=== PATIENT | male | born 1955 | race Caucasian/White ===

== ENCOUNTER 2020-02-20 08:40 | Emergency (ER) | payer OTHER ==
[~2020-02-20] VITALS: Ht 177.8 cm; Wt 93.1 kg
--- NOTE | 2020-02-20 10:07 | Diagnostic Imaging Report ---
HISTORY: Left index finger injury 2 days ago with limp distal phalanx. TECHNIQUE: Frontal view of the hand. Oblique and lateral views of the left index finger. COMPARISON: None. FINDINGS: No acute fracture or dislocation is seen in the left index finger. Alignment appears normal. Joint spaces are preserved. There are degenerative changes at the thumb MCP joint. Tiny hyperdensities in the anterior soft tissues of the left thumb may represent small foreign bodies. IMPRESSION: No acute osseous abnormality is seen in the left index finger. Dictated by: Dictated on workstation # [id number]
--- NOTE | 2020-02-20 10:45 | ED Upper Extremity ---
General Chief Complaint: Upper Extremity Stated Complaint: FINGER INJURY Nursing Triage Note: AMB TO ED REPORTS ON SAT WAS CLEANING OUT TRUCK AND JAMMED L INDEX FINGER FELT A POP AND TIP OF FINGER WENT LIMP. HAS PUT A SPLINT ON IT SINCE SAT . SPLINT IN PLACE. Nursing Sepsis Screen: No Definite Risk Source: patient Exam Limitations: no limitations History of Present Illness Date Seen by Provider: Feb 20, 2020 Time Seen by Provider: 10:42 Initial Comments Was working on his car yesterday, jammed his left index finger and felt a pop. He is unable to extend the left distal phalanx now. He is from [place]. Onset: just prior to arrival Severity: moderate Pain/Injury Location: left 2nd finger Method of Injury: direct blow Modifying Factors: Worse With Movement Allergies and Home Medications Patient Home Medication List Home Medication List Reviewed: Yes Review of Systems Constitutional: see HPI EENTM: see HPI Respiratory: no symptoms reported Cardiovascular: no symptoms reported Genitourinary: no symptoms reported Musculoskeletal: see HPI Skin: no symptoms reported Psychiatric/Neurological: No Symptoms Reported Past Cntkbbv-Lmcjgr-Pnrpao Hx Patient Social History Alcohol Use: Denies Use Recreational Drug Use: No Smoking Status: Never a Smoker Recent Foreign Travel: No Contact w/Someone Who Travel: No Recent Infectious Disease Expo: No Physical Exam Vital Signs Vital Signs - First Documented 02/20/20 08:58 Temp 37.2 Pulse 73 Resp 18 B/P (MAP) 131/92 (105) Pulse Ox 96 O2 Delivery Room Air Capillary Refill : Less Than 3 Seconds Height, Weight, BMI Height: '" Weight: lbs. oz. kg; 29.00 BMI Method: General Appearance: WD/WN, no apparent distress Respiratory: no respiratory distress, no accessory muscle use Shoulder: normal inspection, non-tender Elbow/Forearm: normal inspection, non-tender Wrist: Yes normal inspection, Yes non-tender Hand: normal inspection, Left, limited ROM (unable to do resisted extension of distal phalynx with bruising dorsally over the distal finger. Able to flex the finger though. ) Progress/Results/Core Measures Results/Orders Vital Signs/I&O 02/20/20 08:58 Temp 37.2 Pulse 73 Resp 18 B/P (MAP) 131/92 (105) Pulse Ox 96 O2 Delivery Room Air Blood Pressure Mean: 105 Departure Impression Primary Impression: Mallet deformity of left index finger Disposition: 01 HOME, SELF-CARE Condition: Stable Departure-Patient Inst. Decision time for Depature: 10:44 Patient Instructions: Common Finger Injuries (DC) Add. Discharge Instructions: 1. Keep the finger splinted for about 6 weeks. Follow-up with orthopedics when he returned home for further evaluation. Return to ER for any concerns. All discharge instructions reviewed with patient and/or family. Voiced understanding. AYUSH MENDENHALL ADMINISTRATIVE OFFICER Feb 20, 2020 10:45
[2020-02-20 10:52] VITALS: BP 131/92
== END 2020-02-20 10:51 | disposition home or self-care (01) ==
LOC: EDUNIT# 08:40 → ER 08:43
DX: M20.012 Mallet finger of left finger(s) (principal)
CPT/HCPCS: 73140

== ENCOUNTER 2020-08-25 09:00 | Emergency (ER) | payer OTHER ==
[~2020-08-25] VITALS: Ht 177 cm; Wt 95.2 kg
[2020-08-25] MEDS ORDERED: METO50TA7 (09:27)
[2020-08-25] MEDS ORDERED: OMEP40CA27 (09:27)
[2020-08-25] MEDS ORDERED: BUPR150T24 (09:27)
[2020-08-25] MEDS ORDERED: ATOR10TA66 (09:27)
[2020-08-25] MEDS ORDERED: NITROGLYCERIN 0.4 MG SL TABS BTL 25'S SL PRN (09:30)
[2020-08-25 09:39] LABS: BASOPHILS # (AUTO) 0.1 10^3/uL (0.0-0.1); BASOPHILS % (AUTO) 1 % (0-10); EOSINOPHILS # (AUTO) 0.1 10^3/uL (0.0-0.3); EOSINOPHILS % (AUTO) 2 % (0-10); HEMATOCRIT 41 % (40-54); HEMOGLOBIN 13.7 g/dL (13.3-17.7); LYMPHOCYTES # (AUTO) 2.1 10^3/uL (1.0-4.0); LYMPHOCYTES % (AUTO) 36 % (12-44); MEAN CORPUSCULAR HEMOGLOBIN 31 pg (25-34); MEAN CORPUSCULAR HGB CONC 33 g/dL (32-36); MEAN CORPUSCULAR VOLUME 92 fL (80-99); MEAN PLATELET VOLUME 9.5 fL (9.0-12.2); MONOCYTES % (AUTO) 17 % (0-12); NEUTROPHILS # (AUTO) 2.5 10^3/uL (1.8-7.8); NEUTROPHILS % (AUTO) 44 % (42-75); PLATELET COUNT 208 10^3/uL (130-400); WHITE BLOOD COUNT 5.7 10^3/uL (4.3-11.0)
[2020-08-25 09:43] LABS: PROTHROMBIN TIME PATIENT 13.7 SEC (12.2-14.7)
[2020-08-25 09:44] LABS: CHLORIDE 107 MMOL/L (98-107); POTASSIUM 4.4 MMOL/L (3.6-5.0); SODIUM 140 MMOL/L (135-145)
[2020-08-25 09:45] LABS: CALCIUM 8.7 MG/DL (8.5-10.1)
[2020-08-25 09:46] LABS: GLUCOSE 95 MG/DL (70-105)
[2020-08-25 09:47] LABS: TOTAL PROTEIN 7.1 GM/DL (6.4-8.2)
[2020-08-25 09:48] LABS: BILIRUBIN,TOTAL 0.5 MG/DL (0.1-1.0); CARBON DIOXIDE 23 MMOL/L (21-32)
[2020-08-25 09:50] LABS: ALKALINE PHOSPHATASE 98 U/L (40-136); CREATININE SERUM 0.87 MG/DL (0.60-1.30); GFR ESTIMATED > 60
[2020-08-25 09:51] LABS: BUN/CREATININE RATIO 14
[2020-08-25 09:53] LABS: ALANINE AMINOTRANSFERASE 23 U/L (0-55)
--- NOTE | 2020-08-25 10:05 | Diagnostic Imaging Report ---
INDICATION: Chest pain EXAMINATION: Chest from 08/25/2020 FINDINGS: Single view chest FINDINGS: The cardiomediastinal silhouette is unremarkable. The pulmonary vasculature is within normal limits. The lungs and pleural spaces are clear. IMPRESSION: No evidence of an acute cardiopulmonary process. Dictated by: Dictated on workstation # [id number]
--- NOTE | 2020-08-25 13:04 | ED Cardiac General ---
History of Present Illness General Chief Complaint: Chest Pain Stated Complaint: CHEST TIGHTNESS Nursing Triage Note: PT PRESENTS TO ED VIA POC FROM HOME WITH COMPLAINTS OF L SIDED CP AND TACHYCARDIA STARTING WHILE HE WAS DRIVING THIS AM AROUND 0830. Source: patient Exam Limitations: no limitations History of Present Illness Date Seen by Provider: Aug 25, 2020 Time Seen by Provider: 10:03 Initial Comments Here with report of left-sided chest tightness and palpitations that occurred acutely while driving this morning. He has had another episode of that previously last week and then a few years ago. He has followed with cardiology for that in [facility]. He has had work-up and found to have minimal mitral valve prolapse and he was started on metoprolol and atorvastatin. Has done very well without since. Noted a little chest discomfort today that he rated 3 out of 10. Does admit to drinking a small amount of coffee this morning and does not usually take any caffeine and. Overall better by time of my exam. Timing/Duration: 1/2 hour, gone now Severity: mild, moderate Location: central (Palpitations) Activities at Onset: other (Driving) Prior CP/Workup: echocardiography Modifying Factors: improves with rest NTG SL STORE PROTECTION SPECIALIST: No ASA po STORE PROTECTION SPECIALIST: Yes (162 MG STORE PROTECTION SPECIALIST) Associated Systoms: Chest Pain; No Diaphoresis, No Fever/Chills, No Headaches, No Nausea/Vomiting, No Shortness of Air, No Weakness Allergies and Home Medications Allergies Coded Allergies: Penicillins (Verified Allergy, Unknown, 08/25/20) codeine (Verified Allergy, Unknown, 08/25/20) Patient Home Medication List Home Medication List Reviewed: Yes Review of Systems Review of Systems Constitutional: see HPI; No chills, No fever EENTM: No Symptoms Reported Respiratory: No Symptoms Reported; Denies Cough, Denies Shortness of Air Cardiovascular: See HPI; Denies Lightheadedness; Palpitations Gastrointestinal: Denies Abdominal Pain, Denies Nausea Genitourinary: No Symptoms Reported Musculoskeletal: no symptoms reported Skin: no symptoms reported Psychiatric/Neurological: No Symptoms Reported All Other Systems Reviewed Negative Unless Noted: Yes Past Limpbks-Erxjfi-Tezfkb Hx Past Med/Social Hx: Reviewed Nursing Past Med/Soc Hx Patient Social History Alcohol Use: Occasionally Uses Smoking Status: Never a Smoker Recent Infectious Disease Expo: No Recent Hopitalizations: No Past Medical History Surgeries: Yes (WIPPLE PROCEDURE, ) Gallbladder Respiratory: No Cardiac: Yes Angina, Hypertension Neurological: No Genitourinary: No Gastrointestinal: Yes Gastroesophageal Reflux Musculoskeletal: No Endocrine: No Cancer: Yes (CARCCENOID-PANCREATIC) What Type of Treatment Did You: Surgical Intervention Psychosocial: Yes Depression Integumentary: No Family Medical History Reviewed Nursing Family Hx No Pertinent Family Hx Physical Exam Vital Signs Vital Signs - First Documented 08/25/20 09:07 Temp 36.6 Pulse 72 Resp 18 B/P (MAP) 156/87 (110) Pulse Ox 97 O2 Delivery Room Air Capillary Refill : Less Than 3 Seconds Height, Weight, BMI Height: '" Weight: lbs. oz. kg; 30.00 BMI Method: General Appearance: No Apparent Distress, WD/WN HEENT: PERRL/EOMI, Pharynx Normal Neck: Non Tender, Supple Respiratory: Lungs Clear, Normal Breath Sounds Cardiovascular: Regular Rate, Rhythm, No Murmur Gastrointestinal: Non Tender, Soft Extremity: Normal Range of Motion, Non Tender Neurologic/Psychiatric: Alert, Oriented x3 Skin: Normal Color, Warm/Dry Progress/Results/Core Measures Results/Orders Lab Results Laboratory Tests Test 08/25/20 09:14 08/25/20 11:30 08/25/20 12:49 Range/Units White Blood Count 5.7 4.3-11.0 10^3/uL Red Blood Count 4.48 4.30-5.52 10^6/uL Hemoglobin 13.7 13.3-17.7 g/dL Hematocrit 41 40-54 % Mean Corpuscular Volume 92 80-99 fL Mean Corpuscular Hemoglobin 31 25-34 pg Mean Corpuscular Hemoglobin Concent 33 32-36 g/dL Red Cell Distribution Width 13.0 10.0-14.5 % Platelet Count 208 130-400 10^3/uL Mean Platelet Volume 9.5 9.0-12.2 fL Immature Granulocyte % (Auto) 0 % Neutrophils (%) (Auto) 44 42-75 % Lymphocytes (%) (Auto) 36 12-44 % Monocytes (%) (Auto) 17 H 0-12 % Eosinophils (%) (Auto) 2 0-10 % Basophils (%) (Auto) 1 0-10 % Neutrophils # (Auto) 2.5 1.8-7.8 10^3/uL Lymphocytes # (Auto) 2.1 1.0-4.0 10^3/uL Monocytes # (Auto) 1.0 0.0-1.0 10^3/uL Eosinophils # (Auto) 0.1 0.0-0.3 10^3/uL Basophils # (Auto) 0.1 0.0-0.1 10^3/uL Immature Granulocyte # (Auto) 0.0 0.0-0.1 10^3/uL Prothrombin Time 13.7 12.2-14.7 SEC INR Comment 1.0 0.8-1.4 Activated Partial Thromboplast Time 32 24-35 SEC D-Dimer 0.32 0.00-0.49 UG/ML Sodium Level 140 135-145 MMOL/L Potassium Level 4.4 3.6-5.0 MMOL/L Chloride Level 107 98-107 MMOL/L Carbon Dioxide Level 23 21-32 MMOL/L Anion Gap 10 5-14 MMOL/L Blood Urea Nitrogen 12 7-18 MG/DL Creatinine 0.87 0.60-1.30 MG/DL Estimat Glomerular Filtration Rate > 60 BUN/Creatinine Ratio 14 Glucose Level 95 70-105 MG/DL Calcium Level 8.7 8.5-10.1 MG/DL Corrected Calcium 8.7 8.5-10.1 MG/DL Magnesium Level 2.0 1.6-2.4 MG/DL Total Bilirubin 0.5 0.1-1.0 MG/DL Aspartate Amino Transf (AST/SGOT) 20 5-34 U/L Alanine Aminotransferase (ALT/SGPT) 23 0-55 U/L Alkaline Phosphatase 98 40-136 U/L Myoglobin 41.6 10.0-92.0 NG/ML Troponin I < 0.028 < 0.028 <0.028 NG/ML B-Type Natriuretic Peptide < 10.0 <100.0 PG/ML Total Protein 7.1 6.4-8.2 GM/DL Albumin 4.0 3.2-4.5 GM/DL Glucometer 29 *L 70-110 MG/DL My Orders Orders - SARAH REARDON MD Cbc With Automated Diff (08/25/20 09:27) Magnesium (08/25/20 09:27) Chest 1 View, Ap/Pa Only (08/25/20 09:27) Ekg Tracing (08/25/20 09:27) Comprehensive Metabolic Panel (08/25/20:) Myoglobin Serum (08/25/20:) Protime With Inr (08/25/20:) Partial Thromboplastin Time (08/25/20) O2 (08/25/20) Monitor-Rhythm Ecg Trace Only (08/25/20:) Lipid Panel (08/26/20 06:00) Ed Iv/Invasive Line Start (08/25/20) BNP (08/25/20:) Fibrin Degradation Products (08/25/20) Troponin I (08/25/20:) Nitroglycerin 0.4 Mg Btl 25's (Nitrostat (08/25/20) Troponin I (08/25/20 11:37) Medications Given in ED Current Medications Medications Dose Ordered Sig/Ananda Route Start Time Stop Time Status Last Admin Dose Admin Nitroglycerin 0.4 mg UD PRN SL 08/25/20 09:30 08/25/20 09:51 0.4 MG Vital Signs/I&O 08/25/20 08/25/20 09:07 09:07 Temp 36.6 Pulse 72 Resp 18 B/P (MAP) 156/87 (110) Pulse Ox 97 O2 Delivery Room Air Blood Pressure Mean: 110 Progress Progress Note : Progress Note Seen and evaluated. Chest pain protocol initiated. Patient has already taken aspirin this morning. We will initiate nitroglycerin for chest pain and he did have 1 with minimal effect although blood pressure did come down. Patient did improve with time. 1130: Initial set of labs are completely normal. We will repeat troponin and continue to monitor the patient. So far he has had no events and is overall feeling better. 1300: I have discussed the case with Dr. Teresa. I do believe this may represent paroxysmal atrial tachycardia of some sort although he has been in sinus rhythm throughout the visit today. No symptoms currently. Patient did have his blood sugar checked inadvertently from IV site and that showed to be low. Repeat fingerstick shown to be normal although neither required on this patient. Dr. Teresa will follow the patient in clinic. I did discuss this with the patient and he agrees. He will continue his current medication regimen and avoid caffeine and will call for appointment on Thursday for appointment this week or early next week. Patient is from [facility] but would like to have a certified medical transcriptionist here as he is does spend a fair amount of time here and goes back and forth. Initial ECG Impression Date: Aug 25, 2020 Initial ECG Impression Time: 09:07 Initial ECG Rate: 72 Initial ECG Rhythm: Normal Sinus Initial ECG Impression: Normal Initial ECG Comparisson: No Previous ECG Available Comment Sinus rhythm with normal axis. No evidence of ST elevation NV. No previous available for comparison. Interpreted by me. Diagnostic Imaging Diagonstic Imaging: Xray Plain Films/CT/US/NM/MRI: chest Comments [facility], [place] NAME: JHOANA MOORE [facility] REC#: [id number] PT STATUS: REG ER : 1955 PHYSICIAN: SARAH REARDON MD ADMIT DATE: 08/25/20/ER Signed Date of Exam:08/25/20 CHEST 1 VIEW, AP/PA ONLY INDICATION: Chest pain EXAMINATION: Chest from 08/25/2020 FINDINGS: Single view chest FINDINGS: The cardiomediastinal silhouette is unremarkable. The pulmonary vasculature is within normal limits. The lungs and pleural spaces are clear. IMPRESSION: No evidence of an acute cardiopulmonary process. Dictated by: Dictated on workstation # [id number] Dict: 08/25/20 1002 Trans: 08/25/20 1026 [facility] [id number] Interpreted by: LAURA ATKINS MD Electronically signed by: LAURA ATKINS MD 08/25/20 1026 Departure Impression Primary Impression: Paroxysmal atrial tachycardia Additional Impression: Chest pain Qualified Codes: R07.9 - Chest pain, unspecified Disposition: 01 HOME, SELF-CARE Condition: Improved Departure-Patient Inst. Decision time for Depature: 13:06 Referrals: MORRIS ETRESA MD NO,LOCAL PHYSICIAN (PCP) Primary Care Physician Patient Instructions: Paroxysmal Supraventricular Tachycardia (DC), Chest Pain, Adult ED Add. Discharge Instructions: All discharge instructions reviewed with patient and/or family. Voiced understanding. Continue current medications as previously prescribed. On Thursday morning, call Dr. Teresa's office for appointment later this week or early next week. Return for chest pain, breathing problems, weakness, nausea, vomiting, sweating or other concerns as needed. You should avoid all forms of caffeine. Drink plenty of fluids and eat a normal diet otherwise. Copy Copies To 1: MORRIS TERESA MD, TIMOTHY D MD Aug 25, 2020 13:04
[2020-08-25 13:18] VITALS: BP 139/84
== END 2020-08-25 13:18 | disposition home or self-care (01) ==
LOC: EDUNIT# 09:00 → ER 09:01
DX: I48.0 Paroxysmal atrial fibrillation (principal); Z85.07 Personal history of malignant neoplasm of pancreas; Z88.0 Allergy status to penicillin; Z88.5 Allergy status to narcotic agent
CPT/HCPCS: 36415; 71045; 80053; 82962; 83735; 83874; 83880; 84484; 85025; 85379; 85610; 85730; 93005; 93041